=== PATIENT | female | born 1985 | race Caucasian/White ===

== ENCOUNTER 2016-10-29 06:05 | Day surgery (SDC) | payer MEDICAID ==
[2016-10-29] VITALS (11 sets, daily range): BP systolic 95–121; BP diastolic 55–64; PULSE 56–72; RESP 12–18; Ht 157.5 cm; Wt 64.2 kg
[~2016-10-29] VITALS: Ht 157.5 cm; Wt 64.2 kg
[~2016-10-29 06:05] MED LIST: LACTATED RINGER'S 1,000 ML IV SCH
[2016-10-29 07:07] LABS: HEMATOCRIT 34.9 % (37.0-47.0); HEMOGLOBIN 11.7 g/dl (12.0-16.0); MEAN CORPUSCULAR VOLUME 89.3 fl (82.0-101.0); RED BLOOD COUNT 3.91 10^6/ul (4.20-5.40); WHITE BLOOD COUNT 4.9 10^3/ul (4.8-10.8)
[2016-10-29 07:08] LABS: BASOPHILS % 0.4 % (0.0-2.0); EOSINOPHILS # 0.1 10^3/ul (0.0-0.5); EOSINOPHILS % 1.6 % (0.0-7.0); LYMPHOCYTES # 1.5 10^3/ul (0.8-2.9); LYMPHOCYTES % 30.7 % (15.0-51.0); MEAN CORPUSCULAR HEMOGLOBIN 29.9 pg (29.0-33.0); MEAN CORPUSCULAR HGB CONC 33.5 g/dl (32.0-37.0); MEAN PLATELET VOLUME 10.2 fl (7.4-10.4); MONOCYTE # 0.3 10^3/ul (0.3-0.9); MONOCYTES % 6.7 % (0.0-11.0); NEUTROPHILS % 60.4 % (39.0-77.0); PLATELET COUNT 222 10^3/UL (140-440); RED CELL DISTRIBUTION WIDTH 12.5 % (11.5-14.5)
[2016-10-29] MEDS ORDERED: FENTAnyl 50 MCG/ML VIAL ONE (07:37)
[2016-10-29] MEDS ORDERED: PROPOFOL 20 ML ONE (07:37)
[2016-10-29] MEDS ORDERED: ROCURONIUM 50 MG INJ ONE (07:37)
[2016-10-29] MEDS ORDERED: DEXAMETHASONE 4 MG/ML 1 ML INJ ONE (07:37)
[2016-10-29] MEDS ORDERED: MIDAZOLAM 1 MG/ML 2 ML INJ ONE (07:37)
[2016-10-29] MEDS ORDERED: ONDANSETRON 4 MG INJ ONE (07:37)
[2016-10-29] MEDS ORDERED: LIDOCAINE 2% JELLY 5 ML ONE (07:40)
[2016-10-29] MEDS ORDERED: CEFAZOLIN 1 GM INJ ONE (07:58)
[2016-10-29] MEDS ORDERED: EPHEDrine SULFATE 50 MG/5 ML SYG ONE (08:03)
[2016-10-29] MEDS ORDERED: NEOSTIGMINE 3 MG/3 ML SYRINGE ONE (08:18)
[2016-10-29] MEDS ORDERED: GLYCOPYRROLATE 0.4 MG INJ ONE (08:18)
[2016-10-29] MEDS ORDERED: MIDAZOLAM 1 MG/ML 2 ML INJ IV PRN (08:30)
[2016-10-29] MEDS ORDERED: EPHEDrine SULFATE 50 MG/5 ML SYG IV PRN (08:30)
[2016-10-29] MEDS ORDERED: morphine (1 MG/ML) 10ML SYRINGE IV PRN ×3 (08:30)
[2016-10-29] MEDS ORDERED: hydrALAzine 20 MG INJ IV PRN (08:30)
[2016-10-29] MEDS ORDERED: MEPERIDINE 25 MG INJ IV PRN (08:30)
[2016-10-29] MEDS ORDERED: KETOROLAC 30 MG INJ IV ONE (08:30)
[2016-10-29] MEDS ORDERED: ONDANSETRON 4 MG INJ IV PRN (08:30)
[2016-10-29] MEDS: FENTAnyl 50 MCG/ML VIAL IV PRN ×4 (08:53→09:26)
--- NOTE | 2016-10-29 09:33 | OPR ---
DATE OF OPERATION: 10/29/2016 PREOPERATIVE DIAGNOSIS: Multiparity, desires sterilization. POSTOPERATIVE DIAGNOSIS: Multiparity, desires sterilization. OPERATION PERFORMED: Laparoscopic bilateral tubal ligation. SURGEON: Ricco Farley MD ANESTHESIOLOGIST: Dr. Gage ESTIMATED BLOOD LOSS: Less than 5 mL. COMPLICATIONS: None. PROCEDURE: Laparoscopic bilateral tubal ligation. DESCRIPTION OF PROCEDURE: The patient was taken to the operating room where general anesthesia was found to be adequate. The patient was placed in dorsal lithotomy position after prep and drape. A speculum was placed inside the vaginal vault. Anterior lip of the cervix was grasped by a single-to othed tenaculum. Cervix was dilated by Alvarez dilators. HUMI was inserted and fixed in place. Then attention was turned to abdominal field. A 1 cm incision was made under the umbilicus. First troc ar was inserted under direct visualization of the camera. Abdominal cavity was filled up using 4 L of CO2. Then under direct visualization of the camera, a second trocar was inserted on the left efrain e fascia 8 cm from the first trocar, both tubes were identified and midportion of both tubes grasped and cauterized using gyrus cautery. Pictures were taken. Gas was removed. Trocar was removed und er direct visualization of the camera. Skin incisions were closed using 2-0 Monocryl sutures. Derm abond was placed on top of the incision. The patient tolerated the procedure well and was transferr ed to recovery room in stable condition. There was no complication regarding this surgery. Dictated By: RICCO ALONSO/DESHAUN Conf#: [id number] DID#: [id number]
--- NOTE | 2016-10-29 09:43 | HP ---
DATE OF ADMISSION: 10/29/2016 HISTORY OF PRESENT ILLNESS: This is a preoperative history and physical, 31-year-old 4, par a 4 admitted for laparoscopic bilateral tubal ligation and voluntary sterilization. PAST MEDICAL HISTORY: Denies. PAST SURGICAL HISTORY: Denies. ALLERGIES: NKDA. PHYSICAL EXAMINATION: VITAL SIGNS: Stable. GENERAL: Normal. ABDOMEN: Not tender, not distended. GENITAL: Normal. ASSESSMENT AND PLAN: A 31-year-old multiparity, desires sterilization. test reported nega tive by nurse and the patient's alternatives, options discussed with her extensively and possible la parotomy discussed with the patient. The patient was consented for laparoscopic tubal ligation, pos sible open laparotomy. Risks and benefits of the procedure and alternatives were extensively discus sed. The patient signed the consent and was taken to the operating room. Dictated By: VIVEK ALONSO/DESHAUN Conf#: [id number] DID#: [id number]
== END 2016-10-29 10:30 | disposition home or self-care (01) ==
LOC: SDS 06:05
PROVIDERS: ATTEND Obstetrics & Gynecology
DX: Z30.2 Encounter for sterilization (principal)
CPT/HCPCS: 58670; 84703; 85025; J0690; J1100; J1885; J2175; J2250; J2405; J2710; J3010; Z7512; Z7610